=== PATIENT | male | born 1960 | race Caucasian/White ===

== ENCOUNTER → 2019-12-29 | Outpatient (CLI) | payer OTHER ==
[~2019-12-29] MED LIST: AMLO5; ASPI81CH PO; ATOR40TA PO; CEPH500 PO; CLOP75 PO; HYDACE5 PO; METO25ER PO; NAPR500 PO; NITR.4SL SL; RXHYDACE PO; SILSUL1TC TOP
== END | disposition home or self-care (01) ==
LOC: LAB SHORT 07:23 → PLD 07:23
DX: D17.0 Benign lipomatous neoplasm of skin and subcutaneous tissue of head, face and neck (principal); R22.0 Localized swelling, mass and lump, head
CPT/HCPCS: 88305